=== PATIENT | female | born 1935 | race Caucasian/White ===

== ENCOUNTER 2020-08-01 01:20 | Emergency (ER) | payer OTHER, MEDICAID, SELFPAY ==
[~2020-08-01] VITALS: Ht 162.6 cm; Wt 54.0 kg
[2020-08-01 01:20] VITALS: BP_SYST 125
[~2020-08-01 01:20] MED LIST: VALS40TA6 PO
[2020-08-01] MEDS ORDERED: KETOROLAC TROMETHAMINE 30 MG VIAL IVP ONE (02:00)
[2020-08-01] MEDS ORDERED: NACL 0.9% 1,000 ML IV ONE (02:00)
[2020-08-01] MEDS ORDERED: ONDANSETRON HCL 4 MG/2 ML VIAL IVP ONE (02:00)
[2020-08-01] MEDS ORDERED: KETOROLAC TROMETHAMINE 15 MG VIAL ONE (02:03)
[2020-08-01 02:13] LABS: BILIRUBIN,URINE NEGATIVE (NEGATIVE); BLOOD, URINE NEGATIVE (NEGATIVE); CLARITY/URINE CLEAR (CLEAR); COLOR,URINE YELLOW (YELLOW); GLUCOSE,URINE NEGATIVE (NEGATIVE); KETONES,URINE NEGATIVE (NEGATIVE); LEUKOCYTE ESTERASE ,URINE NEGATIVE (NEGATIVE); NITRITE, URINE NEGATIVE (NEGATIVE); PH,URINE 8.5 (5.0-8.0); PROTEIN URINE NEGATIVE (NEGATIVE)
[2020-08-01 02:16] LABS: ANION GAP 10 (5-15); CALCIUM 8.1 mg/dL (8.4-11.0); CHLORIDE 103 mmol/L (98-107); CREATININE 0.76 mg/dL (0.55-1.30); GLUCOSE 148 mg/dL (70-99); POTASSIUM 3.6 mmol/L (3.5-5.1); SODIUM SERUM 141 mmol/L (136-145); UREA NITROGEN, BLOOD 20 mg/dL (8-21)
[2020-08-01 02:22] LABS: ALANINE AMINOTRANSFERASE 92 U/L (12-78); ASPARTATE AMINOTRANSFERASE 242 U/L (10-37); TOTAL BILIRUBIN 2.1 mg/dL (0.0-1.0)
[2020-08-01 02:24] LABS: INR 1.1 (0.8-1.2); PROTHROMBIN TIME 11.1 SECS (9.5-12.5)
[2020-08-01 02:28] LABS: BASOPHILS # (AUTO) 0.1 K/uL (0.0-0.2); BASOPHILS % (AUTO) 0.5 % (0.0-2.0); EOSINOPHILS % (AUTO) 0.2 % (0.0-4.0); HEMATOCRIT 37.7 % (36-48); HEMOGLOBIN 12.9 g/dL (12.0-16.0); LYMPHOCYTES # (AUTO) 1.1 K/uL (1.0-5.5); LYMPHOCYTES % (AUTO) 11.8 % (20.5-51.5); MEAN CORPUSCULAR HEMOGLOBIN 35 pg (27-31); MEAN CORPUSCULAR HGB CONC 34 % (32-36); MEAN CORPUSCULAR VOLUME 102 fL (79.0-98.0); MONOCYTES # (AUTO) 0.4 K/uL (0.0-1.0); MONOCYTES % (AUTO) 4.7 % (1.7-9.3); NEUTROPHILS # (AUTO) 7.8 K/uL (1.8-7.7); NEUTROPHILS % (AUTO) 82.8 % (40.0-70.0); PLATELET COUNT (AUTO) 189 K/uL (130-430); RED BLOOD CELL COUNT(AUTO) 3.71 MIL/uL (4.2-6.2); RED CELL DISTRIBUTION WIDTH 12.7 % (9.0-15.0); WHITE BLOOD COUNT (AUTO) 9.5 K/uL (4.8-10.8)
[2020-08-01 02:50] LABS: LIPASE 17112 U/L (73-393)
[2020-08-01] MEDS ORDERED: cefTRIAXone 1 GM in D5W 50 ML IV ONE (03:15)
[2020-08-01] MEDS ORDERED: cefTRIAXone 1 GM IVPB PREMIX 50 ML IV ONE (03:16)
[2020-08-01] MEDS ORDERED: ENAL20TA70 PO (03:23)
[2020-08-01] MEDS ORDERED: VANCOMYCIN HCL 1000 MG/VIAL IV ONE (04:44)
[2020-08-01] MEDS ORDERED: VANCOMYCIN HCL 1,000 MG in NS 250 ML IV ONE (04:45)
[2020-08-01 05:05] LABS: AMYLASE 1967 U/L (0-100)
[2020-08-01 06:01] VITALS: BP_SYST 135
== END 2020-08-01 06:13 | disposition short-term general hospital (02) ==
LOC: SED 01:20
DX: K85.90 Acute pancreatitis without necrosis or infection, unspecified (principal); K81.0 Acute cholecystitis; I10 Essential (primary) hypertension; N28.9 Disorder of kidney and ureter, unspecified; Z20.822 Contact with and (suspected) exposure to COVID-19
CPT/HCPCS: 36415; 71045; 74176; 76376; 80053; 82150; 81003; 83605; 83690; 85025; 85610; 87040; 87426; 96361; 96365; 96366; 96367; 96375; 99285; J0696; J1885; J2405; J3370; J7030

== ENCOUNTER 2023-02-20 23:19 | Inpatient (IN) | payer OTHER, MEDICAID ==
[~2023-02-20] VITALS: Ht 160 cm; Wt 59.0 kg
[~2023-02-20 23:19] MED LIST changes: +ENAL20TA70 PO
[2023-02-20 23:39] VITALS: BP_SYST 151; PULSE 117; RESP 20; TEMP 98.1; O2SAT 94
[2023-02-21 00:35] LABS: CLARITY/URINE CLEAR (CLEAR); COLOR,URINE YELLOW (YELLOW)
[2023-02-21 00:36] LABS: BILIRUBIN,URINE NEGATIVE (NEGATIVE); BLOOD, URINE TRACE (NEGATIVE); GLUCOSE,URINE NEGATIVE (NEGATIVE); KETONES,URINE NEGATIVE (NEGATIVE); LEUKOCYTE ESTERASE ,URINE TRACE (NEGATIVE); NITRITE, URINE NEGATIVE (NEGATIVE); PROTEIN URINE NEGATIVE (NEGATIVE); UROBILINOGEN,URINE 0.2 (0.2-1.0)
[2023-02-21 00:46] LABS: BASOPHILS % (AUTO) 1.1 % (0.0-2.0); EOSINOPHILS # (AUTO) 0.1 K/uL (0.0-0.4); EOSINOPHILS % (AUTO) 1.9 % (0.0-4.0); HEMATOCRIT 34.2 % (36-48); HEMOGLOBIN 11.6 g/dL (12.0-16.0); LYMPHOCYTES # (AUTO) 0.9 K/uL (1.0-5.5); LYMPHOCYTES % (AUTO) 22.8 % (20.5-51.5); MEAN CORPUSCULAR HEMOGLOBIN 37 pg (27-31); MEAN CORPUSCULAR HGB CONC 34 % (32-36); MEAN CORPUSCULAR VOLUME 108 fL (79.0-98.0); MONOCYTES # (AUTO) 0.4 K/uL (0.0-1.0); MONOCYTES % (AUTO) 10.3 % (1.7-9.3); NEUTROPHILS # (AUTO) 2.5 K/uL (1.8-7.7); NEUTROPHILS % (AUTO) 63.9 % (40.0-70.0); PLATELET COUNT (AUTO) 136 K/uL (130-430); RED BLOOD CELL COUNT(AUTO) 3.17 MIL/uL (4.2-6.2); RED CELL DISTRIBUTION WIDTH 14.5 % (9.0-15.0)
[2023-02-21 00:47] LABS: ANION GAP 7 (5-15); BACTERIA,URINE FEW /HPF (None Seen); CARBON DIOXIDE 30 mmol/L (23-29); CHLORIDE 102 mmol/L (98-107); CREATININE 0.63 mg/dL (0.55-1.30); GLUCOSE 130 mg/dL (74-106); POTASSIUM 3.6 mmol/L (3.5-5.1); SODIUM SERUM 139 mmol/L (136-145); UREA NITROGEN, BLOOD 18 mg/dL (8-21)
[2023-02-21] MEDS ORDERED: iohexoL 350 mgI/mL, 100 ML INFUS..BTL IV ONE (00:49)
[2023-02-21 00:52] LABS: ALANINE AMINOTRANSFERASE 29 U/L (12-78); ALBUMIN 2.5 g/dL (3.4-4.8); ASPARTATE AMINOTRANSFERASE 58 U/L (10-37); LIPASE 213 U/L (73-393); TOTAL BILIRUBIN 1.8 mg/dL (0.0-1.0); TOTAL PROTEIN, SERUM 6.6 g/dL (6.4-8.3)
[2023-02-21] MEDS ORDERED: NACL 0.9% 1,000 ML IV ONE (01:45)
[2023-02-21] MEDS ORDERED: TAMSULOSIN HCL 0.4 MG CAP PO ONE (02:00)
[2023-02-21] MEDS ORDERED: TAMSULOSIN HCL 0.4 MG CAP ONE (02:02)
[2023-02-21] MEDS ORDERED: cephALEXin 500 MG CAPSULE PO ONE (03:00)
[2023-02-21] MEDS ORDERED: METOPROLOL TARTRATE 25 MG TABLET PO ONE (05:15)
[2023-02-21] MEDS ORDERED: METOPROLOL TARTRATE 5 MG/5 ML VIAL IVP ONE (05:15)
[2023-02-21] MEDS ORDERED: FURO20TA4 PO (07:15)
[2023-02-21] MEDS ORDERED: CARV6.2554 PO (07:15)
[2023-02-21] MEDS ORDERED: CHOL200059 PO (07:15)
[2023-02-21] MEDS ORDERED: [UNRECOGNIZED DRUG - CODE] PO (07:15)
[2023-02-21] MEDS ORDERED: ASPI-1393 PO (07:15)
[2023-02-21] MEDS ORDERED: MECL-292 PO (07:15)
[2023-02-21] MEDS ORDERED: BENA-6 PO (07:15)
[2023-02-21] MEDS ORDERED: ONDANSETRON HCL 4 MG/2 ML VIAL IVP PRN (09:45)
[2023-02-21] MEDS ORDERED: ACETAMINOPHEN 500 MG TABLET PO PRN (09:45)
[2023-02-21 09:49] LABS: INR 1.5 (0.8-1.2); PROTHROMBIN TIME 15.5 SECS (9.5-12.5)
[2023-02-21 09:51] LABS: ANION GAP 7 (5-15); CALCIUM 7.3 mg/dL (8.4-11.0); CARBON DIOXIDE 29 mmol/L (23-29); CHLORIDE 102 mmol/L (98-107); CREATININE 0.67 mg/dL (0.55-1.30); GLUCOSE 190 mg/dL (74-106); POTASSIUM 3.8 mmol/L (3.5-5.1); SODIUM SERUM 138 mmol/L (136-145); UREA NITROGEN, BLOOD 14 mg/dL (8-21)
[2023-02-21 10:02] LABS: ALANINE AMINOTRANSFERASE 27 U/L (12-78); ALBUMIN 2.1 g/dL (3.4-4.8); ASPARTATE AMINOTRANSFERASE 48 U/L (10-37); CHOLESTEROL 69 mg/dL (<200); HDL CHOLESTEROL 35 mg/dL (>55); THYROID STIMULATING HORMONE 1.68 uIu/mL (0.34-4.82); TOTAL BILIRUBIN 1.7 mg/dL (0.0-1.0); TOTAL PROTEIN, SERUM 5.7 g/dL (6.4-8.3); TRIGLYCERIDES 49 mg/dL (30-150)
[2023-02-21 10:03] LABS: LIPASE 54 U/L (73-393)
[2023-02-21 11:20] VITALS: BP_SYST 106; PULSE 84; RESP 16; TEMP 98.1
[2023-02-21] MEDS ORDERED: SPIRONOLACTONE 25 MG TABLET (ALDACTONE) PO ONE (12:00)
[2023-02-21] MEDS: CIPROFLOXACIN LACT 200 MG/D5W 100 ML IV SCH ×2 (12:14→20:07)
[2023-02-21 16:00] VITALS: BP_SYST 128; PULSE 92; RESP 16; TEMP 97.8; O2SAT 98
[2023-02-21 20:00] VITALS: BP_SYST 107; PULSE 76; RESP 18; TEMP 97.6; O2SAT 95
[2023-02-21] MEDS: CARVEDILOL 6.25 MG TABLET (COREG) PO SCH (20:06)
[2023-02-21] MEDS: FUROSEMIDE 20 MG TABLET PO SCH (20:07)
[2023-02-22 00:44] VITALS: BP_SYST 108; PULSE 90; RESP 15; TEMP 97.1; O2SAT 95
[2023-02-22 05:40] LABS: ALANINE AMINOTRANSFERASE 22 U/L (12-78); ALBUMIN 1.9 g/dL (3.4-4.8); ANION GAP 5 (5-15); ASPARTATE AMINOTRANSFERASE 46 U/L (10-37); CALCIUM 7.4 mg/dL (8.4-11.0); CARBON DIOXIDE 28 mmol/L (23-29); CHLORIDE 104 mmol/L (98-107); GLUCOSE 85 mg/dL (74-106); LIPASE 54 U/L (73-393); POTASSIUM 3.9 mmol/L (3.5-5.1); SODIUM SERUM 137 mmol/L (136-145); TOTAL BILIRUBIN 1.4 mg/dL (0.0-1.0); TOTAL PROTEIN, SERUM 5.3 g/dL (6.4-8.3); UREA NITROGEN, BLOOD 17 mg/dL (8-21)
[2023-02-22 05:41] LABS: INR 1.5 (0.8-1.2); PROTHROMBIN TIME 15.7 SECS (9.5-12.5)
[2023-02-22 05:42] LABS: BASOPHILS % (AUTO) 1.1 % (0.0-2.0); EOSINOPHILS # (AUTO) 0.1 K/uL (0.0-0.4); EOSINOPHILS % (AUTO) 3.2 % (0.0-4.0); HEMATOCRIT 28.4 % (36-48); HEMOGLOBIN 10.1 g/dL (12.0-16.0); LYMPHOCYTES # (AUTO) 0.9 K/uL (1.0-5.5); LYMPHOCYTES % (AUTO) 21.7 % (20.5-51.5); MEAN CORPUSCULAR HEMOGLOBIN 38 pg (27-31); MEAN CORPUSCULAR HGB CONC 35 % (32-36); MEAN CORPUSCULAR VOLUME 108 fL (79.0-98.0); MONOCYTES # (AUTO) 0.4 K/uL (0.0-1.0); MONOCYTES % (AUTO) 11.1 % (1.7-9.3); NEUTROPHILS # (AUTO) 2.5 K/uL (1.8-7.7); NEUTROPHILS % (AUTO) 62.9 % (40.0-70.0); PLATELET COUNT (AUTO) 103 K/uL (130-430); RED BLOOD CELL COUNT(AUTO) 2.64 MIL/uL (4.2-6.2); RED CELL DISTRIBUTION WIDTH 14.3 % (9.0-15.0)
[2023-02-22 08:00] VITALS: BP_SYST 129; PULSE 72; RESP 16; TEMP 97; O2SAT 98
[2023-02-22] MEDS: ASPIRIN 81 MG TABLET(ECOTRIN) PO SCH (08:17)
[2023-02-22] MEDS: FUROSEMIDE 20 MG TABLET PO SCH ×2 (08:17→21:36)
[2023-02-22] MEDS: CARVEDILOL 6.25 MG TABLET (COREG) PO SCH ×2 (08:18→21:34)
[2023-02-22] MEDS: CIPROFLOXACIN LACT 200 MG/D5W 100 ML IV SCH ×2 (08:18→21:44)
[2023-02-22] MEDS ORDERED: SPIRONOLACTONE 25 MG TABLET (ALDACTONE) PO SCH (09:00)
[2023-02-22 16:00] VITALS: BP_SYST 132; PULSE 92; RESP 16; TEMP 97.7; O2SAT 95
[2023-02-22 19:40] VITALS: BP_SYST 110; PULSE 74; RESP 18; TEMP 97.6; O2SAT 94
[2023-02-22] MEDS: SPIRONOLACTONE 25 MG TABLET (ALDACTONE) PO SCH (21:35)
[2023-02-23 00:43] VITALS: BP_SYST 110; PULSE 70; RESP 16; TEMP 97.7; O2SAT 95
[2023-02-23 05:54] LABS: BASOPHILS % (AUTO) 1.2 % (0.0-2.0); EOSINOPHILS # (AUTO) 0.2 K/uL (0.0-0.4); EOSINOPHILS % (AUTO) 4.1 % (0.0-4.0); HEMATOCRIT 30.2 % (36-48); HEMOGLOBIN 10.4 g/dL (12.0-16.0); LYMPHOCYTES % (AUTO) 26.2 % (20.5-51.5); MEAN CORPUSCULAR HEMOGLOBIN 37 pg (27-31); MEAN CORPUSCULAR HGB CONC 34 % (32-36); MEAN CORPUSCULAR VOLUME 109 fL (79.0-98.0); MONOCYTES # (AUTO) 0.4 K/uL (0.0-1.0); MONOCYTES % (AUTO) 9.7 % (1.7-9.3); NEUTROPHILS # (AUTO) 2.3 K/uL (1.8-7.7); NEUTROPHILS % (AUTO) 58.8 % (40.0-70.0); PLATELET COUNT (AUTO) 109 K/uL (130-430); RED BLOOD CELL COUNT(AUTO) 2.79 MIL/uL (4.2-6.2); RED CELL DISTRIBUTION WIDTH 14.5 % (9.0-15.0)
[2023-02-23 06:07] LABS: ALANINE AMINOTRANSFERASE 21 U/L (12-78); ALBUMIN 1.9 g/dL (3.4-4.8); ANION GAP 7 (5-15); ASPARTATE AMINOTRANSFERASE 44 U/L (10-37); CALCIUM 7.4 mg/dL (8.4-11.0); CARBON DIOXIDE 27 mmol/L (23-29); CHLORIDE 104 mmol/L (98-107); CREATININE 0.74 mg/dL (0.55-1.30); GLUCOSE 88 mg/dL (74-106); POTASSIUM 4.1 mmol/L (3.5-5.1); SODIUM SERUM 138 mmol/L (136-145); TOTAL BILIRUBIN 1.2 mg/dL (0.0-1.0); TOTAL PROTEIN, SERUM 5.3 g/dL (6.4-8.3); UREA NITROGEN, BLOOD 21 mg/dL (8-21)
[2023-02-23 06:15] LABS: TOTAL IRON BIND. CAPACITY 77 ug/dL (250-450)
[2023-02-23 08:00] VITALS: BP_SYST 108; PULSE 83; RESP 18; TEMP 97.9; O2SAT 96; O2SAT 97
[2023-02-23] MEDS: SPIRONOLACTONE 25 MG TABLET (ALDACTONE) PO SCH (08:22)
[2023-02-23] MEDS: FUROSEMIDE 20 MG TABLET PO SCH (08:23)
[2023-02-23] MEDS: ASPIRIN 81 MG TABLET(ECOTRIN) PO SCH (08:23)
[2023-02-23] MEDS: CIPROFLOXACIN LACT 200 MG/D5W 100 ML IV SCH (08:24)
[2023-02-23] MEDS: CARVEDILOL 6.25 MG TABLET (COREG) PO SCH (08:24)
[2023-02-23 12:00] VITALS: BP_SYST 111; PULSE 92; RESP 18; TEMP 98.3; O2SAT 98
[2023-02-23] MEDS ORDERED: CIPR250T4 PO (16:13)
[2023-02-23] MEDS ORDERED: SPIR50TA5 PO (16:13)
[2023-02-23 16:42] VITALS: BP_SYST 112; PULSE 78; RESP 18; TEMP 98.3; O2SAT 98
[2023-02-23 20:10] LABS: BF APPEARANCE UNSPUN CLEAR (CLEAR); BODY FLUID COLOR YELLOW (LT YELLOW); BODY FLUID TOTAL VOLUME 1450 mL; LYMPHOCYTES, BODY FLUID 63 %; NEUTROPHIL, BODY FLUID 37 %; RBC, BODY FLUID 314 /uL; SOURCE/TYPE ,BODY FLUID ASCITES; WBC, BODY FLUID 28 /uL
[2023-02-24 10:07] LABS: BODY FLUID GLUCOSE 98 mg/dL; BODY FLUID TOTAL PROTEIN 1.4 g/dL
[2023-02-24 12:06] LABS: ALPHA-1-ANTITRYPSIN, S 118 mg/dL (101-187)
[2023-02-24 13:07] LABS: ANTI NUCLEAR AB WITH REFLEX Positive (Negative)
[2023-02-25 08:06] LABS: FERRITIN 805 ng/mL (15-150)
[2023-02-26 07:06] LABS: AFP, TUMOR MARKER <1.8 ng/mL (0.0-8.7)
[2023-02-27 20:06] LABS: ANTI-SMOOTH MUSCLE AB 11 Units (0-19)
[2023-02-28 03:07] LABS: HEPATITIS A AB, IgM Negative (Negative); HEPATITIS B CORE AB, IgM Negative (Negative); HEPATITIS B SURFACE AG Negative (Negative); HEPATITIS C VIRUS AB Non Reactive (Non Reactive)
== END 2023-02-23 17:50 | disposition home or self-care (01) | DRG 432 ==
LOC: SED 23:19 → STU 02-21 06:24
PROVIDERS: ADMIT Internal Medicine Infectious Disease; ATTEND Internal Medicine
PROC: 0W9G3ZZ Drainage of Peritoneal Cavity, Percutaneous Approach (ICD-10-PCS; principal; 2023-02-23)
DX: K74.60 Unspecified cirrhosis of liver (principal); E43 Unspecified severe protein-calorie malnutrition; D61.818 Other pancytopenia; N39.0 Urinary tract infection, site not specified; J90 Pleural effusion, not elsewhere classified; R18.8 Other ascites; D68.9 Coagulation defect, unspecified; M48.56XA Collapsed vertebra, not elsewhere classified, lumbar region, initial encounter for fracture; I48.91 Unspecified atrial fibrillation; K80.20 Calculus of gallbladder without cholecystitis without obstruction; I10 Essential (primary) hypertension; Z79.899 Other long term (current) drug therapy; Z79.82 Long term (current) use of aspirin; Z90.710 Acquired absence of both cervix and uterus; Z68.23 Body mass index [BMI] 23.0-23.9, adult
CPT/HCPCS: 36415; 49083; 71045; 74175; 76376; 76705; 78226; 80053; 80061; 80074; 81000; 82042; 82103; 82105; 82390; 82728; 82947; 83516; 83540; 83550; 83605; 83690; 83880; 84157; 84443; 84484; 85025; 85610-TC; 85730-TC; 86038; 87040; 87070-TC; 87086; 88108; 89051-TC; 89060-TC; 93005; 93306; 96360; 99285; A9537; G0378; J0744; J2405; J3490; Q9967

== ENCOUNTER 2023-05-10 14:28 | Inpatient (IN) | payer OTHER, MEDICAID ==
[~2023-05-10] VITALS: Ht 160 cm; Wt 66.2 kg
[2023-05-10 14:28] VITALS: BP_SYST 138; PULSE 131; RESP 20; TEMP 97.6; O2SAT 97
[~2023-05-10 14:28] MED LIST changes: +ASPI-1393 PO; +CARV6.2554 PO; +CHOL200059 PO; +CIPR250T4 PO; +FURO20TA4 PO; +MECL-292 PO; +SPIR50TA5 PO; -VALS40TA6 PO; +[UNRECOGNIZED DRUG - CODE] PO
[2023-05-10 21:19] LABS: BASOPHILS % (AUTO) 0.7 % (0.0-2.0); EOSINOPHILS # (AUTO) 0.1 K/uL (0.0-0.4); EOSINOPHILS % (AUTO) 1.1 % (0.0-4.0); HEMATOCRIT 33.6 % (36-48); HEMOGLOBIN 11.4 g/dL (12.0-16.0); LYMPHOCYTES # (AUTO) 0.9 K/uL (1.0-5.5); LYMPHOCYTES % (AUTO) 12.9 % (20.5-51.5); MEAN CORPUSCULAR HEMOGLOBIN 37 pg (27-31); MEAN CORPUSCULAR HGB CONC 34 % (32-36); MEAN CORPUSCULAR VOLUME 108 fL (79.0-98.0); MONOCYTES # (AUTO) 0.6 K/uL (0.0-1.0); MONOCYTES % (AUTO) 9.7 % (1.7-9.3); NEUTROPHILS # (AUTO) 5.1 K/uL (1.8-7.7); NEUTROPHILS % (AUTO) 75.6 % (40.0-70.0); PLATELET COUNT (AUTO) 138 K/uL (130-430); RED BLOOD CELL COUNT(AUTO) 3.11 MIL/uL (4.2-6.2); RED CELL DISTRIBUTION WIDTH 14.1 % (9.0-15.0); WHITE BLOOD COUNT (AUTO) 6.7 K/uL (4.8-10.8)
[2023-05-10 21:59] LABS: INR 1.5 (0.8-1.2); PROTHROMBIN TIME 15.5 SECS (9.5-12.5)
[2023-05-10 22:04] LABS: ANION GAP 8 (5-15); CALCIUM 8.6 mg/dL (8.4-11.0); CARBON DIOXIDE 28 mmol/L (23-29); CHLORIDE 97 mmol/L (98-107); CREATININE 0.88 mg/dL (0.55-1.30); GLUCOSE 105 mg/dL (74-106); POTASSIUM 3.6 mmol/L (3.5-5.1); SODIUM SERUM 133 mmol/L (136-145); UREA NITROGEN, BLOOD 24 mg/dL (8-21)
[2023-05-10 22:09] LABS: ALANINE AMINOTRANSFERASE 21 U/L (12-78); ASPARTATE AMINOTRANSFERASE 35 U/L (10-37); TOTAL BILIRUBIN 1.8 mg/dL (0.0-1.0); TOTAL PROTEIN, SERUM 6.1 g/dL (6.4-8.3)
[2023-05-10] MEDS ORDERED: FUROSEMIDE 40 MG/4 ML VIAL IVP ONE (22:45)
[2023-05-10 23:44] LABS: OVALOCYTES FEW
[2023-05-11 00:12] VITALS: BP_SYST 115; PULSE 130; RESP 18; TEMP 98.3; O2SAT 99
[2023-05-11 05:45] LABS: BASOPHILS % (AUTO) 0.5 % (0.0-2.0); EOSINOPHILS # (AUTO) 0.1 K/uL (0.0-0.4); EOSINOPHILS % (AUTO) 1.5 % (0.0-4.0); HEMATOCRIT 34.5 % (36-48); HEMOGLOBIN 11.5 g/dL (12.0-16.0); LYMPHOCYTES # (AUTO) 0.6 K/uL (1.0-5.5); LYMPHOCYTES % (AUTO) 11.7 % (20.5-51.5); MEAN CORPUSCULAR HEMOGLOBIN 36 pg (27-31); MEAN CORPUSCULAR HGB CONC 33 % (32-36); MEAN CORPUSCULAR VOLUME 108 fL (79.0-98.0); MONOCYTES # (AUTO) 0.6 K/uL (0.0-1.0); MONOCYTES % (AUTO) 11.5 % (1.7-9.3); NEUTROPHILS # (AUTO) 4.1 K/uL (1.8-7.7); NEUTROPHILS % (AUTO) 74.8 % (40.0-70.0); PLATELET COUNT (AUTO) 149 K/uL (130-430); RED CELL DISTRIBUTION WIDTH 14.2 % (9.0-15.0); WHITE BLOOD COUNT (AUTO) 5.5 K/uL (4.8-10.8)
[2023-05-11 06:01] LABS: ALANINE AMINOTRANSFERASE 21 U/L (12-78); ANION GAP 8 (5-15); ASPARTATE AMINOTRANSFERASE 34 U/L (10-37); CALCIUM 8.5 mg/dL (8.4-11.0); CARBON DIOXIDE 31 mmol/L (23-29); CHLORIDE 96 mmol/L (98-107); CREATININE 0.85 mg/dL (0.55-1.30); GLUCOSE 93 mg/dL (74-106); POTASSIUM 3.1 mmol/L (3.5-5.1); SODIUM SERUM 135 mmol/L (136-145); TOTAL BILIRUBIN 2.3 mg/dL (0.0-1.0); UREA NITROGEN, BLOOD 23 mg/dL (8-21)
[2023-05-11 07:45] VITALS: O2SAT 97
[2023-05-11] MEDS: FUROSEMIDE 40 MG/4 ML VIAL IVP SCH (08:44)
[2023-05-11 16:00] VITALS: BP_SYST 123; PULSE 128; RESP 18; TEMP 97.1; O2SAT 96
[2023-05-11 20:00] VITALS: BP_SYST 108; PULSE 130; RESP 20; TEMP 99
[2023-05-11 20:15] VITALS: O2SAT 97
[2023-05-11] MEDS ORDERED: CALCIUM 600/VIT D PO SCH (21:00)
[2023-05-11] MEDS: PROPRANOLOL HCL 10 MG TABLET (INDERAL) PO SCH (21:44)
[2023-05-11] MEDS: CARVEDILOL 6.25 MG TABLET (COREG) PO SCH (21:45)
[2023-05-12 00:19] VITALS: BP_SYST 95; PULSE 64; RESP 18; TEMP 98.4; O2SAT 92
[2023-05-12 07:30] VITALS: BP_SYST 110; PULSE 109; RESP 18; TEMP 98.5; O2SAT 93
[2023-05-12] MEDS: CARVEDILOL 6.25 MG TABLET (COREG) PO SCH ×2 (09:21→22:12)
[2023-05-12] MEDS: ASPIRIN 81 MG TABLET(ECOTRIN) PO SCH (09:21)
[2023-05-12] MEDS: SPIRONOLACTONE 50 MG TABLET (ALDACTONE) PO SCH (09:22)
[2023-05-12] MEDS: PROPRANOLOL HCL 10 MG TABLET (INDERAL) PO SCH ×2 (09:22→22:12)
[2023-05-12] MEDS: CHOLECALCIFEROL (VITAMIN D3) 2,000 UNIT TABLET PO SCH (09:23)
[2023-05-12] MEDS: FUROSEMIDE 40 MG/4 ML VIAL IVP SCH (09:23)
[2023-05-12] MEDS ORDERED: CALCIUM CARBONATE/VITAMIN D3 1 TAB TABLET PO ONE (09:30)
[2023-05-12 11:30] VITALS: BP_SYST 96; PULSE 65; RESP 18; TEMP 98.3; O2SAT 93
[2023-05-12 16:00] VITALS: BP_SYST 112; PULSE 88; RESP 18; TEMP 98.3; O2SAT 93
[2023-05-12 20:30] VITALS: BP_SYST 119; PULSE 78; RESP 16; TEMP 97.5; O2SAT 92
[2023-05-12 22:00] VITALS: O2SAT 95
[2023-05-12] MEDS: CALCIUM CARBONATE/VITAMIN D3 1 TAB TABLET PO SCH (22:11)
[2023-05-12 23:24] LABS: BILIRUBIN,URINE NEGATIVE (NEGATIVE); BLOOD, URINE NEGATIVE (NEGATIVE); CLARITY/URINE CLEAR (CLEAR); COLOR,URINE YELLOW (YELLOW); GLUCOSE,URINE NEGATIVE (NEGATIVE); KETONES,URINE NEGATIVE (NEGATIVE); LEUKOCYTE ESTERASE ,URINE TRACE (NEGATIVE); NITRITE, URINE NEGATIVE (NEGATIVE); PROTEIN URINE NEGATIVE (NEGATIVE); UROBILINOGEN,URINE 0.2 (0.2-1.0)
[2023-05-13 00:09] LABS: BACTERIA,URINE RARE /HPF (None Seen)
[2023-05-13 00:30] VITALS: BP_SYST 112; PULSE 78; RESP 16; TEMP 98.3; O2SAT 92
[2023-05-13 07:26] LABS: BASOPHILS # (AUTO) 0.1 K/uL (0.0-0.2); BASOPHILS % (AUTO) 1.2 % (0.0-2.0); EOSINOPHILS # (AUTO) 0.2 K/uL (0.0-0.4); EOSINOPHILS % (AUTO) 4.7 % (0.0-4.0); HEMOGLOBIN 10.4 g/dL (12.0-16.0); LYMPHOCYTES # (AUTO) 0.7 K/uL (1.0-5.5); LYMPHOCYTES % (AUTO) 16.5 % (20.5-51.5); MEAN CORPUSCULAR HEMOGLOBIN 37 pg (27-31); MEAN CORPUSCULAR HGB CONC 34 % (32-36); MEAN CORPUSCULAR VOLUME 109 fL (79.0-98.0); MONOCYTES # (AUTO) 0.4 K/uL (0.0-1.0); MONOCYTES % (AUTO) 10.7 % (1.7-9.3); NEUTROPHILS # (AUTO) 2.8 K/uL (1.8-7.7); PLATELET COUNT (AUTO) 93 K/uL (130-430); RED BLOOD CELL COUNT(AUTO) 2.85 MIL/uL (4.2-6.2); RED CELL DISTRIBUTION WIDTH 14.5 % (9.0-15.0); WHITE BLOOD COUNT (AUTO) 4.2 K/uL (4.8-10.8)
[2023-05-13 07:43] LABS: ALANINE AMINOTRANSFERASE 18 U/L (12-78); ALBUMIN 1.7 g/dL (3.4-4.8); ANION GAP 5 (5-15); ASPARTATE AMINOTRANSFERASE 32 U/L (10-37); CALCIUM 8.3 mg/dL (8.4-11.0); CARBON DIOXIDE 31 mmol/L (23-29); CHLORIDE 98 mmol/L (98-107); CREATININE 0.93 mg/dL (0.55-1.30); GLUCOSE 102 mg/dL (74-106); POTASSIUM 3.6 mmol/L (3.5-5.1); SODIUM SERUM 134 mmol/L (136-145); TOTAL BILIRUBIN 1.5 mg/dL (0.0-1.0); TOTAL PROTEIN, SERUM 5.3 g/dL (6.4-8.3); UREA NITROGEN, BLOOD 30 mg/dL (8-21)
[2023-05-13 07:46] LABS: NEUTROPHILS % (AUTO) 66.9 % (40.0-70.0)
[2023-05-13 08:00] VITALS: BP_SYST 114; PULSE 105; RESP 16; TEMP 98.1; O2SAT 92; O2SAT 96
[2023-05-13] MEDS: CALCIUM CARBONATE/VITAMIN D3 1 TAB TABLET PO SCH ×2 (09:06→22:16)
[2023-05-13] MEDS: FUROSEMIDE 40 MG/4 ML VIAL IVP SCH (09:06)
[2023-05-13] MEDS: SPIRONOLACTONE 50 MG TABLET (ALDACTONE) PO SCH (09:07)
[2023-05-13] MEDS: PROPRANOLOL HCL 10 MG TABLET (INDERAL) PO SCH ×2 (09:07→22:15)
[2023-05-13] MEDS: ASPIRIN 81 MG TABLET(ECOTRIN) PO SCH (09:07)
[2023-05-13] MEDS: CHOLECALCIFEROL (VITAMIN D3) 2,000 UNIT TABLET PO SCH (09:08)
[2023-05-13] MEDS: CARVEDILOL 6.25 MG TABLET (COREG) PO SCH ×2 (09:08→22:15)
[2023-05-13] MEDS ORDERED: PANTOPRAZOLE SODIUM 40 MG TAB PO ONE (13:30)
[2023-05-13 16:13] VITALS: BP_SYST 102; PULSE 80; RESP 16; TEMP 97; O2SAT 92
[2023-05-13 17:58] LABS: INR 1.5 (0.8-1.2); PROTHROMBIN TIME 14.9 SECS (9.5-12.5)
[2023-05-13 20:00] VITALS: BP_SYST 113; PULSE 86; RESP 18; TEMP 98.6; O2SAT 93
[2023-05-13 22:00] VITALS: O2SAT 95
[2023-05-14 00:28] VITALS: BP_SYST 119; PULSE 84; RESP 20; TEMP 97.8; O2SAT 93
[2023-05-14 08:00] VITALS: BP_SYST 98; PULSE 105; RESP 18; TEMP 98.2; O2SAT 92
[2023-05-14] MEDS: FUROSEMIDE 40 MG/4 ML VIAL IVP SCH (09:00)
[2023-05-14] MEDS: SPIRONOLACTONE 50 MG TABLET (ALDACTONE) PO SCH (09:00)
[2023-05-14] MEDS: PROPRANOLOL HCL 10 MG TABLET (INDERAL) PO SCH ×2 (09:00→20:36)
[2023-05-14] MEDS: CHOLECALCIFEROL (VITAMIN D3) 2,000 UNIT TABLET PO SCH (09:54)
[2023-05-14] MEDS: PANTOPRAZOLE SODIUM 40 MG TAB PO SCH (09:55)
[2023-05-14] MEDS: CALCIUM CARBONATE/VITAMIN D3 1 TAB TABLET PO SCH ×2 (09:55→20:35)
[2023-05-14 11:36] VITALS: BP_SYST 93; PULSE 89; RESP 18; TEMP 98.8; O2SAT 96
[2023-05-14 17:30] VITALS: BP_SYST 93; PULSE 63; RESP 18; TEMP 98.8; O2SAT 94
[2023-05-14 22:00] VITALS: O2SAT 93
[2023-05-15 00:44] VITALS: BP_SYST 102; PULSE 68; RESP 19; TEMP 99.6; O2SAT 96
[2023-05-15 08:00] VITALS: BP_SYST 115; PULSE 66; RESP 16; TEMP 98.7; O2SAT 95
[2023-05-15] MEDS: CHOLECALCIFEROL (VITAMIN D3) 2,000 UNIT TABLET PO SCH (10:02)
[2023-05-15] MEDS: PANTOPRAZOLE SODIUM 40 MG TAB PO SCH (10:02)
[2023-05-15] MEDS: CALCIUM CARBONATE/VITAMIN D3 1 TAB TABLET PO SCH ×2 (10:02→21:00)
[2023-05-15] MEDS: SPIRONOLACTONE 50 MG TABLET (ALDACTONE) PO SCH (10:17)
[2023-05-15] MEDS: PROPRANOLOL HCL 10 MG TABLET (INDERAL) PO SCH ×2 (10:18→21:00)
[2023-05-15] MEDS: FUROSEMIDE 40 MG/4 ML VIAL IVP SCH (10:18)
[2023-05-15] MEDS ORDERED: PROP10TA10 PO ×2 (12:30)
[2023-05-15] MEDS ORDERED: SPIR50TA PO ×2 (12:30)
[2023-05-15] MEDS ORDERED: MECLIZINE HCL 25 MG TABLET (ANITVERT) PO PRN (12:45)
[2023-05-15 12:52] VITALS: BP_SYST 111; PULSE 67; RESP 18; TEMP 99.7; O2SAT 99
[2023-05-15 16:00] VITALS: BP_SYST 113; PULSE 65; RESP 17; TEMP 98.1; O2SAT 96
[2023-05-15 20:00] VITALS: BP_SYST 92; PULSE 118; RESP 18; TEMP 100.9; O2SAT 91
[2023-05-15] MEDS ORDERED: PROPRANOLOL HCL 10 MG TABLET (INDERAL) PO SCH (21:00)
[2023-05-15] MEDS ORDERED: FUROSEMIDE 20 MG TABLET PO SCH (21:00)
[2023-05-15 21:05] VITALS: BP_SYST 95; PULSE 117; RESP 18; TEMP 100.4; O2SAT 91
[2023-05-16 00:10] VITALS: BP_SYST 96; PULSE 116; RESP 18; TEMP 99.1; O2SAT 91
[2023-05-16 06:09] LABS: BASOPHILS % (AUTO) 0.3 % (0.0-2.0); EOSINOPHILS % (AUTO) 0.1 % (0.0-4.0); HEMATOCRIT 31.8 % (36-48); HEMOGLOBIN 10.9 g/dL (12.0-16.0); LYMPHOCYTES # (AUTO) 0.8 K/uL (1.0-5.5); MEAN CORPUSCULAR HEMOGLOBIN 37 pg (27-31); MEAN CORPUSCULAR HGB CONC 34 % (32-36); MEAN CORPUSCULAR VOLUME 108 fL (79.0-98.0); MONOCYTES # (AUTO) 0.5 K/uL (0.0-1.0); MONOCYTES % (AUTO) 7.5 % (1.7-9.3); NEUTROPHILS # (AUTO) 5.9 K/uL (1.8-7.7); NEUTROPHILS % (AUTO) 81.1 % (40.0-70.0); PLATELET COUNT (AUTO) 160 K/uL (130-430); RED BLOOD CELL COUNT(AUTO) 2.95 MIL/uL (4.2-6.2); RED CELL DISTRIBUTION WIDTH 14.2 % (9.0-15.0); WHITE BLOOD COUNT (AUTO) 7.2 K/uL (4.8-10.8)
[2023-05-16 06:25] LABS: ANION GAP 3 (5-15); CALCIUM 8.2 mg/dL (8.4-11.0); CARBON DIOXIDE 30 mmol/L (23-29); CHLORIDE 95 mmol/L (98-107); CREATININE 1.09 mg/dL (0.55-1.30); GLUCOSE 120 mg/dL (74-106); POTASSIUM 3.8 mmol/L (3.5-5.1); SODIUM SERUM 128 mmol/L (136-145); UREA NITROGEN, BLOOD 31 mg/dL (8-21)
[2023-05-16 08:00] VITALS: BP_SYST 95; PULSE 117; RESP 16; TEMP 98.9; O2SAT 94
[2023-05-16] MEDS: CHOLECALCIFEROL (VITAMIN D3) 2,000 UNIT TABLET PO SCH (09:00)
[2023-05-16] MEDS ORDERED: SPIRONOLACTONE 50 MG TABLET (ALDACTONE) PO SCH (09:00)
[2023-05-16] MEDS: CALCIUM CARBONATE/VITAMIN D3 1 TAB TABLET PO SCH ×2 (09:00→21:08)
[2023-05-16] MEDS: PANTOPRAZOLE SODIUM 40 MG TAB PO SCH (09:36)
[2023-05-16] MEDS: SPIRONOLACTONE 50 MG TABLET (ALDACTONE) PO SCH (09:37)
[2023-05-16] MEDS: PROPRANOLOL HCL 10 MG TABLET (INDERAL) PO SCH ×2 (09:37→21:00)
[2023-05-16 09:42] VITALS: O2SAT 94
[2023-05-16] MEDS: FUROSEMIDE 40 MG/4 ML VIAL IVP SCH (10:12)
[2023-05-16 12:00] VITALS: BP_SYST 96; PULSE 105; RESP 18; TEMP 98.7; O2SAT 95
[2023-05-16] MEDS: lisinopriL 20 MG TABLET PO SCH (13:03)
[2023-05-16 16:00] VITALS: BP_SYST 100; PULSE 96; RESP 16; TEMP 99.6; O2SAT 96
[2023-05-16 16:32] LABS: APPEARANCE,SPUN,BODY FLUID CLEAR (CLEAR); BF APPEARANCE UNSPUN HAZY (CLEAR); BODY FLUID COLOR YELLOW (LT YELLOW); BODY FLUID SOURCE/ TYPE PARACENTESIS; SOURCE/TYPE ,BODY FLUID PARACENTESIS
[2023-05-16 16:33] LABS: BODY FLUID TOTAL VOLUME 4450 mL; LYMPHOCYTES, BODY FLUID 88 %; NEUTROPHIL, BODY FLUID 12 %; RBC, BODY FLUID 141 /uL; WBC, BODY FLUID 122 /uL
[2023-05-16 20:16] VITALS: BP_SYST 86; PULSE 101; RESP 16; TEMP 98.3; O2SAT 96; O2SAT 97
[2023-05-16] MEDS ORDERED: ALBUMIN HUMAN 25% 200 ML IV ONE (21:00)
[2023-05-16 21:46] LABS: BODY FLUID GLUCOSE 122 mg/dL; BODY FLUID TOTAL PROTEIN 1.4 g/dL
[2023-05-17 01:02] VITALS: BP_SYST 99; PULSE 90; RESP 16; TEMP 98.1; O2SAT 100
[2023-05-17 07:53] VITALS: BP_SYST 93; PULSE 116; RESP 18; TEMP 99.5; O2SAT 95
[2023-05-17] MEDS: CALCIUM CARBONATE/VITAMIN D3 1 TAB TABLET PO SCH ×2 (08:42→20:52)
[2023-05-17] MEDS: SPIRONOLACTONE 50 MG TABLET (ALDACTONE) PO SCH (08:43)
[2023-05-17] MEDS: PROPRANOLOL HCL 10 MG TABLET (INDERAL) PO SCH ×2 (08:43→20:51)
[2023-05-17] MEDS: lisinopriL 20 MG TABLET PO SCH (08:44)
[2023-05-17] MEDS: PANTOPRAZOLE SODIUM 40 MG TAB PO SCH (08:45)
[2023-05-17] MEDS: CHOLECALCIFEROL (VITAMIN D3) 2,000 UNIT TABLET PO SCH (08:45)
[2023-05-17] MEDS: FUROSEMIDE 40 MG/4 ML VIAL IVP SCH (08:53)
[2023-05-17 11:17] VITALS: O2SAT 95
[2023-05-17 11:34] VITALS: BP_SYST 92; PULSE 74; RESP 17; TEMP 97.9; O2SAT 96
[2023-05-17 17:03] VITALS: BP_SYST 90; PULSE 100; RESP 18; TEMP 98; O2SAT 93
[2023-05-17 20:00] VITALS: BP_SYST 102; PULSE 108; RESP 17; TEMP 100.9; O2SAT 95
[2023-05-17] MEDS ORDERED: ACETAMINOPHEN 325 MG TABLET PO PRN (20:45)
[2023-05-18 01:08] VITALS: BP_SYST 95; PULSE 115; RESP 18; TEMP 98.6
[2023-05-18 07:52] VITALS: BP_SYST 97; PULSE 122; RESP 18; TEMP 98.6; O2SAT 95
[2023-05-18 09:00] VITALS: O2SAT 95
[2023-05-18] MEDS: CALCIUM CARBONATE/VITAMIN D3 1 TAB TABLET PO SCH (09:00)
[2023-05-18] MEDS: CHOLECALCIFEROL (VITAMIN D3) 2,000 UNIT TABLET PO SCH (09:00)
[2023-05-18] MEDS: PROPRANOLOL HCL 10 MG TABLET (INDERAL) PO SCH (09:00)
[2023-05-18] MEDS: SPIRONOLACTONE 50 MG TABLET (ALDACTONE) PO SCH (10:08)
[2023-05-18] MEDS: PANTOPRAZOLE SODIUM 40 MG TAB PO SCH (10:10)
[2023-05-18] MEDS: FUROSEMIDE 40 MG/4 ML VIAL IVP SCH (10:14)
[2023-05-18 11:22] VITALS: BP_SYST 101; PULSE 105; RESP 19; TEMP 98.6; O2SAT 95
[2023-05-18 16:50] VITALS: BP_SYST 95; PULSE 109; RESP 18; TEMP 98.4; O2SAT 96
[2023-05-18 20:00] VITALS: BP_SYST 102; PULSE 116; RESP 16; TEMP 97.6; O2SAT 94
[2023-05-19] VITALS: BP_SYST 96; PULSE 114; RESP 16; TEMP 97.5; O2SAT 94
[2023-05-19 08:18] VITALS: BP_SYST 104; PULSE 118; RESP 18; TEMP 97.4; O2SAT 97
[2023-05-19 08:55] VITALS: O2SAT 97
[2023-05-19] MEDS: PANTOPRAZOLE SODIUM 40 MG TAB PO SCH (11:21)
[2023-05-19 11:35] VITALS: BP_SYST 104; PULSE 118; RESP 18; TEMP 97.4; O2SAT 97
[2023-05-25] MEDS ORDERED: PROP10TA10 PO ×4 (14:00)
== END 2023-05-19 12:09 | disposition home health service (06) | DRG 432 ==
LOC: SED 14:28 → STU 22:43 → SMU 05-15 20:02
PROVIDERS: ADMIT Internal Medicine; ATTEND Internal Medicine
PROC: 0W9G3ZZ Drainage of Peritoneal Cavity, Percutaneous Approach (ICD-10-PCS; principal; 2023-05-14)
PROC: 0W9G3ZZ Drainage of Peritoneal Cavity, Percutaneous Approach (ICD-10-PCS; 2023-05-18)
DX: K74.60 Unspecified cirrhosis of liver (principal); J96.01 Acute respiratory failure with hypoxia; R18.8 Other ascites; I10 Essential (primary) hypertension; D64.9 Anemia, unspecified; D69.6 Thrombocytopenia, unspecified; Z79.82 Long term (current) use of aspirin; Z79.899 Other long term (current) drug therapy; Z87.440 Personal history of urinary (tract) infections
CPT/HCPCS: 36415; 49083; 71045; 74018; 76705; 80048; 80053; 81000; 81001; 81015; 82042; 82947; 82962; 83880; 84157; 84484; 85025; 85610-TC; 85730-TC; 87070-TC; 88108; 88305; 89051-TC; 89060-TC; 93005; 96374; 99285; G0378; J1940

== ENCOUNTER 2023-06-04 11:31 | Inpatient (IN) | payer OTHER, MEDICAID ==
[~2023-06-04] VITALS: Ht 160 cm; Wt 52.6 kg
[~2023-06-04 11:31] MED LIST changes: -ASPI-1393 PO; -CARV6.2554 PO; -CIPR250T4 PO; -ENAL20TA70 PO; +PROP10TA10 PO; +SPIR50TA PO; -SPIR50TA5 PO
[2023-06-04 11:38] VITALS: BP_SYST 110; PULSE 83; RESP 18; TEMP 98.3; O2SAT 97
[2023-06-04 12:21] LABS: BILIRUBIN,URINE 1+ (NEGATIVE); BLOOD, URINE NEGATIVE (NEGATIVE); COLOR,URINE YELLOW (YELLOW); GLUCOSE,URINE NEGATIVE (NEGATIVE); KETONES,URINE TRACE (NEGATIVE); LEUKOCYTE ESTERASE ,URINE 1+ (NEGATIVE); NITRITE, URINE POSITIVE (NEGATIVE); PROTEIN URINE NEGATIVE (NEGATIVE)
[2023-06-04 12:50] LABS: BASOPHILS # (AUTO) 0.1 K/uL (0.0-0.2); BASOPHILS % (AUTO) 1.3 % (0.0-2.0); EOSINOPHILS # (AUTO) 0.1 K/uL (0.0-0.4); EOSINOPHILS % (AUTO) 1.9 % (0.0-4.0); HEMATOCRIT 35.3 % (36-48); HEMOGLOBIN 11.9 g/dL (12.0-16.0); LYMPHOCYTES # (AUTO) 0.7 K/uL (1.0-5.5); LYMPHOCYTES % (AUTO) 12.8 % (20.5-51.5); MEAN CORPUSCULAR HEMOGLOBIN 37 pg (27-31); MEAN CORPUSCULAR HGB CONC 34 % (32-36); MEAN CORPUSCULAR VOLUME 109 fL (79.0-98.0); MONOCYTES # (AUTO) 0.6 K/uL (0.0-1.0); MONOCYTES % (AUTO) 10.9 % (1.7-9.3); NEUTROPHILS # (AUTO) 3.9 K/uL (1.8-7.7); NEUTROPHILS % (AUTO) 73.1 % (40.0-70.0); PLATELET COUNT (AUTO) 188 K/uL (130-430); RED BLOOD CELL COUNT(AUTO) 3.23 MIL/uL (4.2-6.2); RED CELL DISTRIBUTION WIDTH 14.1 % (9.0-15.0); WHITE BLOOD COUNT (AUTO) 5.4 K/uL (4.8-10.8)
[2023-06-04 12:54] LABS: BACTERIA,URINE RARE /HPF (None Seen); CLARITY/URINE HAZY (CLEAR); RBC,URINE 0-3 /HPF (0-3); YEAST,URINE Few /HPF (None Seen)
[2023-06-04 13:05] LABS: ANION GAP 4 (5-15); CALCIUM 8.8 mg/dL (8.4-11.0); CARBON DIOXIDE 31 mmol/L (23-29); CHLORIDE 99 mmol/L (98-107); CREATININE 1.06 mg/dL (0.55-1.30); GLUCOSE 171 mg/dL (74-106); POTASSIUM 4.3 mmol/L (3.5-5.1); SODIUM SERUM 134 mmol/L (136-145); UREA NITROGEN, BLOOD 21 mg/dL (8-21)
[2023-06-04 13:09] LABS: ALANINE AMINOTRANSFERASE 17 U/L (12-78); ALBUMIN 2.4 g/dL (3.4-4.8); ASPARTATE AMINOTRANSFERASE 33 U/L (10-37); BILIRUBIN,DIRECT 0.8 mg/dL (0.0-0.3); LIPASE 19 U/L (16-77); TOTAL BILIRUBIN 2.1 mg/dL (0.0-1.0); TOTAL PROTEIN, SERUM 6.9 g/dL (6.4-8.3)
[2023-06-04] MEDS ORDERED: cephALEXin 500 MG CAPSULE PO ONE (14:15)
[2023-06-04] MEDS ORDERED: FLUCONAZOLE 200 MG TABLET (DIFLUCAN) PO ONE (14:15)
[2023-06-04] MEDS ORDERED: cefTRIAXone 1 GM in D5W 50 ML IV ONE (15:45)
[2023-06-04] MEDS ORDERED: NACL 0.9% 1,000 ML IV ONE (15:45)
[2023-06-04] MEDS ORDERED: cefTRIAXone 1 GM VIAL ONE (16:19)
[2023-06-04] MEDS ORDERED: MORPHINE 2 MG/ML INJ. SYRINGE IVP PRN ×2 (17:00)
[2023-06-04] MEDS ORDERED: DOCUSATE SODIUM 100 MG CAPSULE PO PRN (17:00)
[2023-06-04] MEDS ORDERED: ZOLPIDEM TARTRATE 5 MG TABLET PO PRN (17:00)
[2023-06-04] MEDS ORDERED: ACETAMINOPHEN 500 MG TABLET PO PRN ×2 (17:00→17:15)
[2023-06-04] MEDS ORDERED: MUPIROCIN 2% TOPICAL OINTMENT 22 GM NS PRN (17:00)
[2023-06-04] MEDS ORDERED: POTASSIUM CHLORIDE 20 MEQ TABLET.ER PO PRN (17:00)
[2023-06-04] MEDS ORDERED: ONDANSETRON HCL 4 MG/2 ML VIAL IVP PRN (17:00)
[2023-06-04] MEDS ORDERED: MAGNESIUM SULFATE 50 ML IV PRN (17:00)
[2023-06-04] MEDS ORDERED: LORazepam 2 MG/ML VIAL IVP PRN (17:00)
[2023-06-04] MEDS ORDERED: FUROSEMIDE 40 MG/4 ML VIAL IVP ONE (17:30)
[2023-06-04 19:02] LABS: INR 1.4 (0.8-1.2); PROTHROMBIN TIME 13.9 SECS (9.5-12.5)
[2023-06-04] MEDS ORDERED: CALCIUM 600/VIT D PO SCH (21:00)
[2023-06-04] MEDS: CALCIUM CARBONATE/VITAMIN D3 1 TAB TABLET PO SCH (21:21)
[2023-06-04] MEDS: PROPRANOLOL HCL 10 MG TABLET (INDERAL) PO SCH (21:23)
[2023-06-04 21:58] VITALS: BP_SYST 116; PULSE 82; RESP 18; TEMP 97.7; O2SAT 98
[2023-06-04 22:05] VITALS: BP_SYST 116; PULSE 82; RESP 18; TEMP 97.7; O2SAT 98
[2023-06-05 00:04] VITALS: BP_SYST 96; PULSE 106; RESP 16; TEMP 97.4; O2SAT 94
[2023-06-05 05:34] LABS: BASOPHILS # (AUTO) 0.1 K/uL (0.0-0.2); BASOPHILS % (AUTO) 1.1 % (0.0-2.0); EOSINOPHILS # (AUTO) 0.1 K/uL (0.0-0.4); EOSINOPHILS % (AUTO) 2.3 % (0.0-4.0); HEMATOCRIT 31.2 % (36-48); HEMOGLOBIN 10.6 g/dL (12.0-16.0); LYMPHOCYTES # (AUTO) 0.7 K/uL (1.0-5.5); LYMPHOCYTES % (AUTO) 12.5 % (20.5-51.5); MEAN CORPUSCULAR HEMOGLOBIN 37 pg (27-31); MEAN CORPUSCULAR HGB CONC 34 % (32-36); MEAN CORPUSCULAR VOLUME 109 fL (79.0-98.0); MONOCYTES # (AUTO) 0.7 K/uL (0.0-1.0); MONOCYTES % (AUTO) 12.5 % (1.7-9.3); NEUTROPHILS % (AUTO) 71.6 % (40.0-70.0); PLATELET COUNT (AUTO) 147 K/uL (130-430); RED BLOOD CELL COUNT(AUTO) 2.87 MIL/uL (4.2-6.2); RED CELL DISTRIBUTION WIDTH 14.2 % (9.0-15.0); WHITE BLOOD COUNT (AUTO) 5.6 K/uL (4.8-10.8)
[2023-06-05 05:55] LABS: ANION GAP 6 (5-15); CALCIUM 8.4 mg/dL (8.4-11.0); CARBON DIOXIDE 29 mmol/L (23-29); CHLORIDE 103 mmol/L (98-107); GLUCOSE 127 mg/dL (74-106); POTASSIUM 4.1 mmol/L (3.5-5.1); SODIUM SERUM 138 mmol/L (136-145); UREA NITROGEN, BLOOD 20 mg/dL (8-21)
[2023-06-05 08:03] VITALS: BP_SYST 90; PULSE 90; RESP 14; TEMP 98.6; O2SAT 98
[2023-06-05] MEDS: FUROSEMIDE 40 MG/4 ML VIAL IVP SCH (08:37)
[2023-06-05] MEDS: PROPRANOLOL HCL 10 MG TABLET (INDERAL) PO SCH (08:42)
[2023-06-05] MEDS: CALCIUM CARBONATE/VITAMIN D3 1 TAB TABLET PO SCH ×2 (08:43→21:34)
[2023-06-05 08:49] VITALS: O2SAT 98
[2023-06-05] MEDS ORDERED: SPIRONOLACTONE 50 MG TABLET (ALDACTONE) PO SCH (09:00)
[2023-06-05] MEDS ORDERED: MIDODRINE HCL 5 MG TABLET (PROAMATINE) PO ONE (10:15)
[2023-06-05] MEDS: cefTRIAXone 1 GM in D5W 50 ML IV SCH (10:16)
[2023-06-05 11:05] VITALS: BP_SYST 110; PULSE 82; RESP 16; TEMP 97.5; O2SAT 98
[2023-06-05] MEDS: MIDODRINE HCL 5 MG TABLET (PROAMATINE) PO SCH ×2 (14:55→21:34)
[2023-06-05 15:04] VITALS: BP_SYST 98; PULSE 70; RESP 16; TEMP 97.4; O2SAT 99
[2023-06-05 20:10] VITALS: BP_SYST 102; PULSE 77; RESP 18; TEMP 98.4; O2SAT 97
[2023-06-06 00:45] VITALS: BP_SYST 119; PULSE 85; RESP 18; TEMP 96.5; O2SAT 96
[2023-06-06 05:53] LABS: BASOPHILS # (AUTO) 0.1 K/uL (0.0-0.2); EOSINOPHILS # (AUTO) 0.1 K/uL (0.0-0.4); EOSINOPHILS % (AUTO) 2.1 % (0.0-4.0); HEMATOCRIT 30.3 % (36-48); HEMOGLOBIN 10.7 g/dL (12.0-16.0); LYMPHOCYTES # (AUTO) 0.9 K/uL (1.0-5.5); LYMPHOCYTES % (AUTO) 14.5 % (20.5-51.5); MEAN CORPUSCULAR HEMOGLOBIN 38 pg (27-31); MEAN CORPUSCULAR HGB CONC 35 % (32-36); MEAN CORPUSCULAR VOLUME 108 fL (79.0-98.0); MONOCYTES # (AUTO) 0.5 K/uL (0.0-1.0); MONOCYTES % (AUTO) 8.8 % (1.7-9.3); NEUTROPHILS # (AUTO) 4.5 K/uL (1.8-7.7); NEUTROPHILS % (AUTO) 73.6 % (40.0-70.0); PLATELET COUNT (AUTO) 146 K/uL (130-430); RED BLOOD CELL COUNT(AUTO) 2.82 MIL/uL (4.2-6.2); RED CELL DISTRIBUTION WIDTH 14.3 % (9.0-15.0); WHITE BLOOD COUNT (AUTO) 6.1 K/uL (4.8-10.8)
[2023-06-06 06:36] LABS: ANION GAP 4 (5-15); CALCIUM 8.7 mg/dL (8.4-11.0); CARBON DIOXIDE 29 mmol/L (23-29); CHLORIDE 101 mmol/L (98-107); GLUCOSE 119 mg/dL (74-106); POTASSIUM 4.3 mmol/L (3.5-5.1); SODIUM SERUM 134 mmol/L (136-145); UREA NITROGEN, BLOOD 22 mg/dL (8-21)
[2023-06-06 08:00] VITALS: BP_SYST 107; PULSE 95; RESP 16; TEMP 98.9; O2SAT 96
[2023-06-06] MEDS ORDERED: SPIRONOLACTONE 50 MG TABLET (ALDACTONE) PO SCH (09:00)
[2023-06-06] MEDS: CALCIUM CARBONATE/VITAMIN D3 1 TAB TABLET PO SCH (09:00)
[2023-06-06] MEDS: FUROSEMIDE 40 MG/4 ML VIAL IVP SCH (09:00)
[2023-06-06] MEDS: cefTRIAXone 1 GM in D5W 50 ML IV SCH (09:14)
[2023-06-06] MEDS: MIDODRINE HCL 5 MG TABLET (PROAMATINE) PO SCH ×2 (09:16→16:56)
[2023-06-06 09:41] LABS: INR 1.5 (0.8-1.2)
[2023-06-06 11:02] VITALS: O2SAT 96
[2023-06-06 12:02] VITALS: BP_SYST 121; PULSE 64; RESP 18; TEMP 98.2; O2SAT 99
[2023-06-06] MEDS ORDERED: FURO-149 PO (15:15)
[2023-06-06] MEDS ORDERED: SPIR100T PO (15:16)
[2023-06-06] MEDS ORDERED: MIDO5TAB4 PO (15:16)
[2023-06-06 16:30] VITALS: BP_SYST 109; PULSE 89; RESP 18; TEMP 98.6; O2SAT 98
[2023-06-06 16:47] VITALS: BP_SYST 109; PULSE 89; RESP 18; TEMP 98.6; O2SAT 98
== END 2023-06-06 17:40 | disposition home or self-care (01) | DRG 433 ==
LOC: SED 11:31 → SMU 18:41
PROVIDERS: ADMIT General Practice; ATTEND General Practice
DX: K74.60 Unspecified cirrhosis of liver (principal); E87.1 Hypo-osmolality and hyponatremia; N39.0 Urinary tract infection, site not specified; J90 Pleural effusion, not elsewhere classified; R18.8 Other ascites; I11.0 Hypertensive heart disease with heart failure; K75.81 Nonalcoholic steatohepatitis (NASH); B37.9 Candidiasis, unspecified; R62.7 Adult failure to thrive; I50.9 Heart failure, unspecified; Z68.20 Body mass index [BMI] 20.0-20.9, adult; E88.09 Other disorders of plasma-protein metabolism, not elsewhere classified; Z88.0 Allergy status to penicillin
CPT/HCPCS: 36415; 71045; 76376; 76705; 80048; 80076; 81000; 81001; 81015; 82140; 83037; 83605; 83690; 83735; 85025; 85610-TC; 85730-TC; 87040; 87081; 87086; 96365; 99285; J0696; J1940; J2270; J7060

== ENCOUNTER 2024-03-07 09:58 | Emergency (ER) | payer OTHER, MEDICAID ==
[~2024-03-07] VITALS: Ht 160 cm; Wt 54.4 kg
[~2024-03-07 09:58] MED LIST changes: +FURO-149 PO; -FURO20TA4 PO; +MIDO5TAB4 PO; -PROP10TA10 PO; +SPIR100T PO; -SPIR50TA PO
[2024-03-07 10:33] VITALS: BP_SYST 127; PULSE 97; RESP 18; TEMP 97.6; O2SAT 95
[2024-03-07 10:50] LABS: EOSINOPHILS # (AUTO) 0.1 K/uL (0.0-0.4); EOSINOPHILS % (AUTO) 2.7 % (0.0-4.0); HEMATOCRIT 32.4 % (36-48); LYMPHOCYTES # (AUTO) 0.5 K/uL (1.0-5.5); LYMPHOCYTES % (AUTO) 15.6 % (20.5-51.5); MEAN CORPUSCULAR HEMOGLOBIN 36 pg (27-31); MEAN CORPUSCULAR HGB CONC 34 % (32-36); MEAN CORPUSCULAR VOLUME 105 fL (79.0-98.0); MONOCYTES # (AUTO) 0.4 K/uL (0.0-1.0); MONOCYTES % (AUTO) 10.3 % (1.7-9.3); NEUTROPHILS # (AUTO) 2.5 K/uL (1.8-7.7); NEUTROPHILS % (AUTO) 70.4 % (40.0-70.0); PLATELET COUNT (AUTO) 151 K/uL (130-430); RED BLOOD CELL COUNT(AUTO) 3.08 MIL/uL (4.2-6.2); RED CELL DISTRIBUTION WIDTH 13.9 % (9.0-15.0); WHITE BLOOD COUNT (AUTO) 3.5 K/uL (4.8-10.8)
[2024-03-07 11:05] LABS: ANION GAP 5 (5-15); CALCIUM 8.1 mg/dL (8.4-11.0); CARBON DIOXIDE 32 mmol/L (23-29); CHLORIDE 102 mmol/L (98-107); CREATININE 1.03 mg/dL (0.55-1.30); GLUCOSE 129 mg/dL (74-106); INR 1.4 (0.8-1.2); POTASSIUM 3.8 mmol/L (3.5-5.1); PROTHROMBIN TIME 14.8 SECS (9.5-12.5); SODIUM SERUM 139 mmol/L (136-145); UREA NITROGEN, BLOOD 17 mg/dL (8-21)
[2024-03-07 11:06] LABS: ALANINE AMINOTRANSFERASE 17 U/L (12-78); ALBUMIN 2.2 g/dL (3.4-4.8); ASPARTATE AMINOTRANSFERASE 39 U/L (10-37); BILIRUBIN,DIRECT 0.8 mg/dL (0.0-0.3); LIPASE 22 U/L (16-77); TOTAL BILIRUBIN 2.2 mg/dL (0.0-1.0); TOTAL PROTEIN, SERUM 6.5 g/dL (6.4-8.3)
[2024-03-07] MEDS: ALBUMIN HUMAN 25% 50 ML IV ONE (13:06)
[2024-03-07 14:23] VITALS: BP_SYST 128; PULSE 95; RESP 20; TEMP 98.3; O2SAT 97
== END 2024-03-07 14:22 | disposition home or self-care (01) ==
LOC: SED 09:58
DX: K74.69 Other cirrhosis of liver (principal); R18.8 Other ascites; R14.0 Abdominal distension (gaseous); I10 Essential (primary) hypertension; Z88.6 Allergy status to analgesic agent; Z79.899 Other long term (current) drug therapy; Z79.2 Long term (current) use of antibiotics
CPT/HCPCS: 49083; 99285; 74176; 96365; 80076; 80048; 83690; 85025; 85610; 85730; 36415; P9046

== ENCOUNTER 2024-03-24 08:36 | Emergency (ER) | payer OTHER, MEDICAID ==
[~2024-03-24] VITALS: Ht 160 cm; Wt 59.0 kg
[2024-03-24 08:41] VITALS: BP_SYST 110; PULSE 65; RESP 16; TEMP 98; O2SAT 98
[2024-03-24 09:13] LABS: BILIRUBIN,URINE 1+ (NEGATIVE); BLOOD, URINE NEGATIVE (NEGATIVE); CLARITY/URINE SL CLOUDY (CLEAR); COLOR,URINE YELLOW (YELLOW); GLUCOSE,URINE NEGATIVE (NEGATIVE); KETONES,URINE TRACE (NEGATIVE); LEUKOCYTE ESTERASE ,URINE 1+ (NEGATIVE); NITRITE, URINE NEGATIVE (NEGATIVE); PH,URINE 5.5 (5.0-8.0); PROTEIN URINE NEGATIVE (NEGATIVE); UROBILINOGEN,URINE 0.2 (0.2-1.0)
[2024-03-24 09:16] LABS: EOSINOPHILS # (AUTO) 0.2 K/uL (0.0-0.4); HEMOGLOBIN 10.7 g/dL (12.0-16.0); LYMPHOCYTES # (AUTO) 0.7 K/uL (1.0-5.5); MONOCYTES # (AUTO) 0.4 K/uL (0.0-1.0); NEUTROPHILS # (AUTO) 2.6 K/uL (1.8-7.7); WHITE BLOOD COUNT (AUTO) 3.9 K/uL (4.8-10.8)
[2024-03-24 09:27] LABS: EOSINOPHILS % (AUTO) 3.9 % (0.0-4.0); HEMATOCRIT 31.3 % (36-48); LYMPHOCYTES % (AUTO) 17.8 % (20.5-51.5); MEAN CORPUSCULAR HEMOGLOBIN 36 pg (27-31); MEAN CORPUSCULAR HGB CONC 34 % (32-36); MEAN CORPUSCULAR VOLUME 105 fL (79.0-98.0); MONOCYTES % (AUTO) 10.1 % (1.7-9.3); NEUTROPHILS % (AUTO) 67.2 % (40.0-70.0); PLATELET COUNT (AUTO) 127 K/uL (130-430); RED BLOOD CELL COUNT(AUTO) 2.99 MIL/uL (4.2-6.2); RED CELL DISTRIBUTION WIDTH 14.2 % (9.0-15.0)
[2024-03-24 09:36] LABS: INR 1.3 (0.8-1.2); PROTHROMBIN TIME 13.8 SECS (9.5-12.5)
[2024-03-24 09:41] LABS: BACTERIA,URINE MODERATE /HPF (None Seen); HYALINE CASTS, URINE 0-1 /LPF (None Seen); RBC,URINE 0-3 /HPF (0-3); URINE AMORPHOUS URATE 1+ /HPF (None Seen); YEAST,URINE Rare /HPF (None Seen)
[2024-03-24 10:38] LABS: ALANINE AMINOTRANSFERASE 22 U/L (12-78); ALBUMIN 2.1 g/dL (3.4-4.8); ANION GAP 3 (5-15); ASPARTATE AMINOTRANSFERASE 46 U/L (10-37); CALCIUM 8.2 mg/dL (8.4-11.0); CARBON DIOXIDE 29 mmol/L (23-29); CHLORIDE 102 mmol/L (98-107); GLUCOSE 114 mg/dL (74-106); POTASSIUM 4.2 mmol/L (3.5-5.1); SODIUM SERUM 134 mmol/L (136-145); TOTAL BILIRUBIN 1.9 mg/dL (0.0-1.0); TOTAL PROTEIN, SERUM 6.4 g/dL (6.4-8.3); UREA NITROGEN, BLOOD 22 mg/dL (8-21)
[2024-03-24 11:07] LABS: AMYLASE 29 U/L (0-100); BILIRUBIN,DIRECT 0.7 mg/dL (0.0-0.3); LIPASE 20 U/L (16-77)
[2024-03-24] MEDS ORDERED: FURO-149 PO (11:22)
[2024-03-24 11:30] VITALS: BP_SYST 112; PULSE 64; RESP 16; TEMP 98; O2SAT 98
== END 2024-03-24 11:26 | disposition home or self-care (01) ==
LOC: SED 08:36
DX: K74.69 Other cirrhosis of liver (principal); R18.8 Other ascites; J45.909 Unspecified asthma, uncomplicated; I10 Essential (primary) hypertension; Z88.6 Allergy status to analgesic agent; Z79.899 Other long term (current) drug therapy
CPT/HCPCS: 36415; 76705; 80048; 80076; 81000; 81001; 81015; 82150; 83605; 83690; 85025; 85610; 85730; 87086; 99285

== ENCOUNTER 2024-04-04 09:03 | Emergency (ER) | payer OTHER, MEDICAID ==
[~2024-04-04] VITALS: Ht 157.5 cm; Wt 56.7 kg
[2024-04-04 09:11] VITALS: BP_SYST 131; PULSE 84; RESP 18; TEMP 98.3; O2SAT 94
[2024-04-04 09:36] LABS: EOSINOPHILS # (AUTO) 0.1 K/uL (0.0-0.4); EOSINOPHILS % (AUTO) 2.6 % (0.0-4.0); HEMATOCRIT 33.1 % (36-48); HEMOGLOBIN 11.4 g/dL (12.0-16.0); LYMPHOCYTES # (AUTO) 0.5 K/uL (1.0-5.5); LYMPHOCYTES % (AUTO) 12.6 % (20.5-51.5); MEAN CORPUSCULAR HEMOGLOBIN 37 pg (27-31); MEAN CORPUSCULAR HGB CONC 34 % (32-36); MEAN CORPUSCULAR VOLUME 106 fL (79.0-98.0); MONOCYTES # (AUTO) 0.3 K/uL (0.0-1.0); MONOCYTES % (AUTO) 8.6 % (1.7-9.3); NEUTROPHILS # (AUTO) 2.8 K/uL (1.8-7.7); NEUTROPHILS % (AUTO) 75.2 % (40.0-70.0); PLATELET COUNT (AUTO) 171 K/uL (130-430); RED BLOOD CELL COUNT(AUTO) 3.11 MIL/uL (4.2-6.2); WHITE BLOOD COUNT (AUTO) 3.7 K/uL (4.8-10.8)
[2024-04-04 10:33] LABS: INR 1.3 (0.8-1.2); PROTHROMBIN TIME 13.8 SECS (9.5-12.5)
[2024-04-04 10:43] LABS: ANION GAP 7 (5-15); BILIRUBIN,DIRECT 0.8 mg/dL (0.0-0.3); CALCIUM 8.3 mg/dL (8.4-11.0); CARBON DIOXIDE 29 mmol/L (23-29); CHLORIDE 105 mmol/L (98-107); CREATININE 1.11 mg/dL (0.55-1.30); POTASSIUM 3.6 mmol/L (3.5-5.1); SODIUM SERUM 141 mmol/L (136-145); TOTAL BILIRUBIN 1.7 mg/dL (0.0-1.0); UREA NITROGEN, BLOOD 27 mg/dL (8-21)
[2024-04-04 10:44] LABS: ALANINE AMINOTRANSFERASE 19 U/L (12-78); ALBUMIN 2.2 g/dL (3.4-4.8); AMYLASE 28 U/L (0-100); ASPARTATE AMINOTRANSFERASE 37 U/L (10-37); LIPASE 22 U/L (16-77); TOTAL PROTEIN, SERUM 6.5 g/dL (6.4-8.3)
[2024-04-04 11:03] LABS: GLUCOSE 126 mg/dL (74-106)
[2024-04-04 11:40] VITALS: BP_SYST 131; PULSE 84; RESP 18; TEMP 98.3; O2SAT 94
== END 2024-04-04 11:41 | disposition home or self-care (01) ==
LOC: SED 09:03
DX: K70.31 Alcoholic cirrhosis of liver with ascites (principal); J45.909 Unspecified asthma, uncomplicated; I10 Essential (primary) hypertension; Z88.6 Allergy status to analgesic agent; Z79.899 Other long term (current) drug therapy
CPT/HCPCS: 49083; 99285; 76705; 80076; 80048; 82150; 83690; 85025; 85610; 85730; 36415; 83605; 82397; C1729